=== PATIENT | female | born 1990 | race Caucasian/White ===

== ENCOUNTER 2024-07-12 10:03 | Inpatient (IN) | payer BC ==
[2024-07-12] MEDS ORDERED: Misoprostol 200 MCG TAB PR PRN (10:33)
[2024-07-12] MEDS ORDERED: fentaNYL 50 mcg/mL 1 mL Vial SLOW IVP PRN (10:33)
[2024-07-12] MEDS ORDERED: Acetaminophen 500 MG TAB PO PRN (10:33)
[2024-07-12] MEDS ORDERED: Docusate 100 MG CAP PO PRN (10:33)
[2024-07-12] MEDS ORDERED: Ondansetron PF 4 MG/2 ML Vial IVP PRN ×2 (10:33→18:15)
[2024-07-12] MEDS ORDERED: HYDROcodone/Acetaminophen 5/325 mg Tablet PO PRN ×4 (10:33→18:15)
[2024-07-12] MEDS ORDERED: Ibuprofen 800 MG TAB PO PRN (10:33)
[2024-07-12] MEDS ORDERED: hydrALAZINE 20 MG/ML VIAL SLOW IVP PRN ×2 (10:33→18:15)
[2024-07-12] MEDS ORDERED: Methylergonovine 0.2 MG/ML VIAL IM PRN (10:33)
[2024-07-12] MEDS ORDERED: Diphenoxylate HCl/Atropine Tablet PO PRN ×2 (10:33)
[2024-07-12] MEDS ORDERED: Promethazine HCl 25 MG/ML VIAL IM PRN (10:33)
[2024-07-12] MEDS ORDERED: Lidocaine 1% (PF) 30 ML VIAL SC PRN (10:33)
[2024-07-12] MEDS ORDERED: Carboprost 250 MCG/ML AMP IM PRN (10:33)
[2024-07-12 11:33] VITALS: BMI 23.6
[2024-07-12 11:35] LABS: Hematocrit 39.4 % (34.9-44.5); Hemoglobin 13.7 g/dL (12.0-15.5); Mean Corpuscular HGB CONC 34.8 g/dL (32.0-36.0); Mean Corpuscular Hemoglobin 31.1 pg (27.0-33.0); Mean Corpuscular Volume 89.3 fL (81.6-98.3); Mean Platelet Volume 10.4 fL (7.4-10.4); Platelet Count 277 10x3/uL (150-450); RBC Distribution Width 12.2 % (11.5-14.5); Red Blood Cell (RBC) Count 4.41 10x6/uL (3.90-5.03); White Blood Cell (WBC) Count 10.9 10x3/uL (3.5-10.5)
[2024-07-12 12:25] LABS: HBsAg Index 0.14 S/CO (0-0.99); HIV (1/2) Antibody/Antigen Non-Reactive (NonReactive); HIV 1/2 INDEX 0.09 S/CO (<1.00); Hep B Surf Ag - L&D Non-Reactive S/CO (NonReactive)
[2024-07-12 12:27] LABS: Syphilis Antibody Nonreactive (Nonreactive); Syphilis Antibody Index 0.05 S/CO (<1.00 Non-Reactive)
[2024-07-12] MEDS: Oxytocin 30 units/NS 500 ML 500 ML IV SCH (18:11)
[2024-07-12] MEDS: Lactated Ringer's 1,000 ML IV SCH (18:12)
[2024-07-12] MEDS ORDERED: Misoprostol 200 MCG TAB VAG PRN (18:15)
[2024-07-12] MEDS ORDERED: Bisacodyl 10 MG SUPP PR PRN (18:15)
[2024-07-12] MEDS ORDERED: Oxytocin 30 units/NS 500 ML 500 ML IV SCH (18:15)
[2024-07-12] MEDS ORDERED: Zolpidem Tartrate 5 MG TAB PO PRN (18:15)
[2024-07-12] MEDS ORDERED: Lanolin Ointment 7 GM TUBE TOP PRN (18:15)
[2024-07-12] MEDS ORDERED: Preparation H Ointment 28 GM TUBE PR PRN (18:15)
[2024-07-12] MEDS ORDERED: Boostrix 0.5 ML (Tdap) VIAL (>/=7 yrs of age) IM ONE (18:15)
[2024-07-12] MEDS ORDERED: Milk Of Magnesia 30 ML UDCUP PO PRN (18:15)
[2024-07-12] MEDS ORDERED: diphenhydrAMINE 25 MG CAP PO PRN (18:15)
[2024-07-12] MEDS: Benzocaine-Menthol 82.5 ML CAN TOP PRN (21:41)
[2024-07-12] MEDS: Ibuprofen 800 MG TAB PO SCH (21:42)
[2024-07-12] MEDS: Docusate 100 MG CAP PO SCH (21:42)
[2024-07-13 04:20] LABS: Hematocrit 36.4 % (34.9-44.5); Hemoglobin 12.4 g/dL (12.0-15.5); Mean Corpuscular HGB CONC 34.1 g/dL (32.0-36.0); Mean Corpuscular Hemoglobin 30.9 pg (27.0-33.0); Mean Corpuscular Volume 90.8 fL (81.6-98.3); Mean Platelet Volume 10.3 fL (7.4-10.4); Platelet Count 273 10x3/uL (150-450); RBC Distribution Width 12.2 % (11.5-14.5); Red Blood Cell (RBC) Count 4.01 10x6/uL (3.90-5.03); White Blood Cell (WBC) Count 13.4 10x3/uL (3.5-10.5)
[2024-07-13] MEDS: Ferrous Sulfate 325 MG TAB PO SCH (08:26)
[2024-07-13] MEDS: Prenatal Vitamin 1 TAB PO SCH (08:26)
[2024-07-14] MEDS ORDERED: Milk Of Magnesia 30 ML UDCUP PO PRN (07:21)
[2024-07-14] MEDS ORDERED: Zolpidem Tartrate 5 MG TAB PO PRN (07:23)
[2024-07-14 08:02] VITALS: BP 115/69; TEMP 98.5
== END 2024-07-14 10:45 | disposition home or self-care (01) | DRG 806 ==
LOC: CSHLD 10:03 → CSHPP 20:30
PROVIDERS: ADMIT Obstetrics & Gynecology; ATTEND Obstetrics & Gynecology
PROC: 10E0XZZ Delivery of Products of Conception, External Approach (ICD-10-PCS; principal; 2024-07-12)
DX: O99.284 Endocrine, nutritional and metabolic diseases complicating childbirth (principal); O98.52 Other viral diseases complicating childbirth; Z37.0 Single live birth; E03.9 Hypothyroidism, unspecified; Z3A.38 38 weeks gestation of pregnancy; B00.9 Herpesviral infection, unspecified
CPT/HCPCS: 36415; 85027; 86780; 86850; 86900; 86901; 87340; 87389; J2590